=== PATIENT | male | born 1965 ===

== ENCOUNTER → 2025-07-31 08:29 | Outpatient (CLI) | payer OTHER ==
[2025-07-31 09:57] LABS: CREATININE SERUM 1.7 mg/dL (0.70-1.30)
== END | disposition home or self-care (01) ==
LOC: LAB 08:29
PROVIDERS: ATTEND Radiology Diagnostic Radiology
DX: N13.5 Crossing vessel and stricture of ureter without hydronephrosis (principal)

== ENCOUNTER 2025-08-02 07:27 | Outpatient (CLI) | payer OTHER | END 2025-08-02 07:29 | disposition home or self-care (01) | LOC: MRI 07:27 | PROVIDERS: ATTEND Urology | DX: N13.5 Crossing vessel and stricture of ureter without hydronephrosis (principal) | CPT/HCPCS: 74185 ==